=== PATIENT | female | born 1960 | race Caucasian/White ===

== ENCOUNTER 2017-06-23 07:31 | Inpatient (IN) | payer MEDICAID ==
[~2017-06-23] VITALS: Ht 152.4 cm; Wt 72.8 kg
[~2017-06-23 07:31] MED LIST: IBUPROFEN 800800 M1 PO; ROBAXIN500 MG PO
[2017-06-23 07:36] VITALS: BP 112/72
[2017-06-23 08:18] LABS: HEMATOCRIT 38.5 % (37.0-47.0); HEMOGLOBIN 13.3 gm/dL (12.0-15.0); MCH 28.3 pg (26.0-34.0); MCHC 34.7 g/dL (28.0-37.0); MCV 81.8 fL (80.0-100.0); MPV 8.9 fl. (7.2-11.1); NUCLEATED RBCS 0 /100WBC; PLATELET COUNT* 266 thou/uL (150-400); RDW-CV 13.4 % (10.5-14.5); WBC 9.2 thou/uL (4.0-11.0)
[2017-06-23 08:21] LABS: BE -3.4 mmol/L (-2 to +3); HCO3 19.2 mmol/L (22.0-26.0); pH 7.453 (7.340-7.450)
[2017-06-23 08:25] LABS: ANION GAP 14 mmol/L (7-16); BUN 7 mg/dL (7-18); CALCIUM 9.1 mg/dL (8.5-10.1); CHLORIDE 102 mmol/L (98-107); CO2 22 mmol/L (21-32); CREATININE 0.7 mg/dL (0.6-1.3); GLUCOSE 98 mg/dL (70-99); POTASSIUM 3.3 mmol/L (3.5-5.1); SODIUM 138 mmol/L (136-145)
[2017-06-23 08:25] LABS: PO2 55.2 mmHg (75.0-100.0)
[2017-06-23 08:33] LABS: ALBUMIN 3.5 g/dL (3.4-5.0); ALKALINE PHOSPHATASE 113 U/L (46-116); SGOT 36 U/L (15-37); SGPT 60 U/L (30-65); TOTAL BILIRUBIN 0.9 mg/dL (<0.1-1.0); TOTAL PROTEIN 6.6 g/dL (6.4-8.2); TROPONIN-I LEVEL <0.06 ng/mL (<0.06)
[2017-06-23 08:46] LABS: ABSOLUTE BASOPHILS 0.1 thou/uL (0.0-0.2); ABSOLUTE EOSINOPHILS 0.4 thou/uL (0.0-0.7); ABSOLUTE LYMPHOCYTES 1.4 thou/uL (0.8-5.3); ABSOLUTE MONOCYTES 0.7 thou/uL (0.0-1.2); ABSOLUTE NEUTROPHILS 6.6 thou/uL (1.6-8.1); PLATELET ESTIMATE ADEQUATE
[2017-06-23 10:42] VITALS: BP 102/75
[2017-06-23 10:48] VITALS: BP 118/68
--- NOTE | 2017-06-23 11:00 | NUR ---
RECEIVED REPORT. PT TRANSFERRED TO ROOM 227 VIA CART. VSS. CARDIAC MONITOIRING PLACED. IVF BOLUS AND ANTIBIOTIC INFUSING AT THIS TIME. PT ON 5L PER NC WITH O2 SAT AT 93% PT REPORTS SOA WITH EXERTION. PT DNENIES ANY COMPLAINTS OF PAIN OR DISCOFMORT. ADMISSION HISTORY AND ASSESSMENT COMPELTED CHARTED. PT ORIETNED TO ROOM AND CALL LIGHT. PT INFORMED OF PLAN OF CARE. PT COMMUNICATES UNDERSTANDING. CALL LIGHT IS WITHIN REACH. WILL CONTINUE TO MOTNIOR FOR DURAITON OF SHIFT.
[2017-06-23 15:40] VITALS: BP 97/64
--- NOTE | 2017-06-23 18:06 | NUR ---
VSS. CARDIAC MONTIORING IN PLACE WITH NO CHANGES THIS SHIFT. PT PROGRESSING TOWARDS GOALS. PT REMAINS ON 5L PER NC. PT REPORTS FEELING BETTER. IVF INFUSING PER ORDERS. PT HAS HAD NO COMPLAINTS OF PAIN OR DISCOMFORT THIS SHIFT. PT IS UP WITH STAND BY ASSISTANCE TO BATHROOM. PT DOES BECOME SOA WITH ACTIVITY. PT SCHEDULED TO HAVE THROACENTESIS IN AM. PT INFORMED OF PLAN. CALL LIGHT IS WITHIN REACH. WILL CONTINUE TO MONITOR FOR DURATION OF SHIFT.
[2017-06-24] VITALS (8 sets, daily range): BP systolic 100–129; BP diastolic 53–76
[2017-06-24 04:17] LABS: APTT 24.7 Seconds (25.0-31.3); INR 1.3; PROTIME 12.7 Seconds (9.20-11.50)
[2017-06-24 04:18] LABS: CALCIUM 8.7 mg/dL (8.5-10.1); CREATININE 0.8 mg/dL (0.6-1.3)
[2017-06-24 04:20] LABS: POTASSIUM 4.5 mmol/L (3.5-5.1)
[2017-06-24 04:58] LABS: ABSOLUTE LYMPHOCYTES 0.6 thou/uL (0.8-5.3); ABSOLUTE MONOCYTES 0.2 thou/uL (0.0-1.2); ABSOLUTE NEUTROPHILS 6.9 thou/uL (1.6-8.1); BASOPHILS 0.1 %; HEMATOCRIT 36.6 % (37.0-47.0); HEMOGLOBIN 12.4 gm/dL (12.0-15.0); LYMPHOCYTES 7.9 %; MCH 28.1 pg (26.0-34.0); MCHC 33.8 g/dL (28.0-37.0); MCV 83.1 fL (80.0-100.0); MONOCYTES 2.5 %; MPV 8.8 fl. (7.2-11.1); NUCLEATED RBCS 0 /100WBC; PLATELET COUNT* 242 thou/uL (150-400); POLYS 89.5 %; RBC 4.41 mil/uL (4.20-5.00); RDW-CV 13.6 % (10.5-14.5); WBC 7.7 thou/uL (4.0-11.0)
--- NOTE | 2017-06-24 05:27 | NUR ---
PATIENT SLEPT PART OF THE NIGHT. IV FLUIDS CONTINUE TO INFUSE ORDERED. PATIENT REMAIN ON OXYGEN AT 5 LITERS PER NASAL CANNULA. PATIENT HAD NO COMPLAINTS OF PAIN. WILL CONTINUE TO MONITOR.
[2017-06-24 06:50] LABS: BE -4.3 mmol/L (-2 to +3); PCO2 34.3 mmHg (35.0-45.0); PO2 62.4 mmHg (75.0-100.0); pH 7.383 (7.340-7.450)
--- NOTE | 2017-06-24 08:00 | NUR ---
AM ASSESSMENT COMPLETE, DEFER TO COMPUTER CHARTING. STRAP BUCKLER TRACKING SR. 02 ON 4L PER NC, SOA NOTED WITH ACTIVITY. NPO TODAY FOR PROCEDURE TODAY. IV INFUSING, CALL LIGHT WITHIN REACH. DENIES PAIN, DIZZINESS AT THIS TIME.
[2017-06-24 13:05] LABS: BF RBC 2236 /mm3; TOTAL CELL COUNT 1536 /mm3
[2017-06-24 13:08] LABS: CLARITY SLIGHTLY HAZY; COLOR AMBER; TOTAL VOLUME 550 ml
--- NOTE | 2017-06-24 13:30 | NUR ---
MET WITH PT TO DISCUSS HOME SITUATION/DC PLANNING. PT [place]IVES [place] WITH DTR AND GRANDDTR. 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 PT USES NO EQUIPMENT AND HASN'T HAD HH. SHE IS UNINSURED. GAVE PT COMMUNITY RESOURCES INFO, DISCOUNT DRUG CARD AND INFO RE; DISABILITY. PT HOPES SHE DOESM'T NEED ANY DME AT DC AND PLANS TO RETURN HOME AT DC. DID ENCOURAGE F/U AFTER DC AND DISCUSSED [facility]
--- NOTE | 2017-06-24 14:00 | NUR ---
ORDERS RECEIVED BY DR RIOS TO DC IV IN FOOT, DC PER ORDERS. DOCTOR AWARE PATIENT NOT HAVING IV ACCESS.
[2017-06-24 14:37] LABS: NT-PRO BRAIN NAT PEPTIDE 435 pg/mL (<300); TROPONIN-I LEVEL <0.06 ng/mL (<0.06)
[2017-06-24 14:43] LABS: BF EOSINOPHILS 1 %; BF LYMPHOCYTES 90 %; BF POLYS 9 %; BF TISSUE 17 /100 WBC
[2017-06-24 15:01] LABS: SOURCE THORACENTESIS
--- NOTE | 2017-06-24 15:52 | 2DMMODE ---
[place] [address] 2 D/M-MODE ECHOCARDIOGRAM Name: GERMAN LAMBERT Room: [facility] ADM IN [place]#: [id number] Admission: 06/23/17 Attend Phys: Bobo Armando Discharge: Date of : 60 Date of Service: 06/24/17 1552 Report #: [id number] THIS REPORT FOR: //name// APPROVED REPORT Study performed: 06/24/2017 14:22:31 EXAM: Comprehensive 2D, Doppler, and color-flow Echocardiogram Patient Location: In-Patient Room #: [facility] Status: routine BSA: 1.70 HR: 105 bpm BP: 107/73 mmHg Rhythm: NSR Other Information Study Quality: Good Indications Dyspnea 2D Dimensions LVEF(%): 71.96 (>50%) IVSd: 10.27 (7-11mm) LVOT Diam: 21.05 (18-24mm) LVDd: 36.36 mm PWd: 8.52 (7-11mm) Ascending Ao: 26.31 (22-36mm) LVDs: 21.69 (25-40mm) Aortic Root: 29.92 mm Boone's LVEF: 71.96 % Aortic Valve AoV Peak See.: 1.02 m/s AO Peak Gr.: 4.18 mmHg LVOT Max P.18 mmHg AO Mean Gr.: 2.13 mmHg LVOT Mean P.33 mmHg LVOT Max V: 0.89 m/s AO V2 VTI: 13.16 cm LVOT Mean V: 0.52 m/s BUBBA (VTI): 3.16 cm2 LVOT V1 VTI: 11.94 cm Mitral Valve MV Decel. Time: 93.97 ms MV PHT: 27.25 ms MVA (PHT): 8.07 cm2 [place] [address] 2 D/M-MODE ECHOCARDIOGRAM Name: GERMAN LAMBERT Room: [place] [address] ADM IN .R.#: [id number] Admission: 06/23/17 Attend Phys: Bobo Armando Discharge: Date of : 60 Date of Service: 06/24/17 1552 Report #: [id number] TR Peak Gr.: 34.56 mmHg RVSP: 39.00 mmHg Left Ventricle The left ventricle is normal size. There is normal LV segmental wall motion. There is normal left ventricular wall thickness. Left ventricular systolic function is normal. LVEF is 60-65%. Transmitral Doppler flow pattern suggests impaired LV relaxation. Right Ventricle The right ventricle is normal size. The right ventricular systolic function is normal. Atria The left atrium size is normal. The right atrium size is normal. Aortic Valve The aortic valve is normal in structure. No aortic regurgitation is present. There is no aortic valvular stenosis. Mitral Valve The mitral valve is normal in structure. There is no mitral valve regurgitation noted. No evidence of mitral valve stenosis. Tricuspid Valve The tricuspid valve is normal in structure. Trace tricuspid regurgitation. The RVSP is 35-40 mmHg. Pulmonic Valve The pulmonary valve is normal in structure. There is no pulmonic valvular regurgitation. Great Vessels The aortic root is normal in size. IVC is normal in size and collapses with >50% inspiration Pericardium There is a very large circumferential pericardial effusion. There are no changes to suggest tamponade. <Conclusion> The left ventricle is normal size. There is normal left ventricular wall thickness. Left ventricular systolic function is normal. LVEF is 60-65%. Transmitral Doppler [place] [address] 2 D/M-MODE ECHOCARDIOGRAM Name: GERMAN LAMBERT Room: [address] IN [facility]#: [id number] Admission: 06/23/17 Attend Phys: Bobo Armando Discharge: Date of : 60 Date of Service: 06/24/17 1552 Report #: [id number] relaxation. Trace tricuspid regurgitation. The RVSP is 35-40 mmHg. There is a very large circumferential pericardial effusion. There are no changes to suggest tamponade. <ELECTRONICALLY SIGNED> By: Ian Pollack MD, FACC 06/24/17 1552 [id number] Ian Pollack MD, FACC /INF
--- NOTE | 2017-06-24 16:33 | EKG ---
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: ZHEN : 1960 Requested By: Etta Peraza Order Number: [id number] Arianna MD: Akash Ragland Measurements Intervals [place] Rate: 102 P: 87 IA: 162 QRS: 89 QRSD: 106 T: 34 QT: 360 QTc: 469 Interpretive Statements Sinus tachycardia Low voltage with right axis deviation No previous ECG available for comparison Electronically Signed On 06-24-2017 16:33:18 NEON SIGN MECHANIC by Akash Ragland [email or web address] <ELECTRONICALLY SIGNED> By: Akash Ragland MD, [facility] 06/24/17 1633 0745 0745 Akash Ragland MD, FACC /EPI
--- NOTE | 2017-06-24 18:04 | NUR ---
MONITORING AND EVALUATION ADVISOR TRACKING ST - DENIES CHEST PAIN, DIZZINESS OR ANY DISCOMFORT AT THIS TIME. EDUCATED ON BEDREST DUE TO RECEIVING SEDATION. DRESSING CDI TO CHEST AND BANDAID DRESSING CDI TO LEFT SIDE OF BACK FROM PROCEDURES TODAY. PINK IN COLOR, REPORTING BREATHING IMPROVING, FEELING BETTER. HOB ELEVATED, GIVEN DINNER TRAY - TOLERATING MEAL WITH NO COMPLAINTS OF NASUEA. CALL LIGHT WITHIN REACH. WILL CONTINUE WITH PLAN OF CARE.
[2017-06-24 18:52] LABS: BF RBC 736545 /mm3; TOTAL CELL COUNT 4321 /mm3
[2017-06-24 19:01] LABS: CLARITY CLOUDY; COLOR BLOODY; TOTAL VOLUME 20 ml
[2017-06-24 19:32] LABS: BF EOSINOPHILS 9 %; BF LYMPHOCYTES 55 %; BF POLYS 36 %; SOURCE PERICARDIAL
[2017-06-25 00:52] VITALS: BP 102/64
[2017-06-25 04:11] VITALS: BP 108/73
[2017-06-25 04:38] LABS: BE -0.4 mmol/L (-2 to +3); HCO3 23.4 mmol/L (22.0-26.0); PCO2 35.7 mmHg (35.0-45.0); PO2 70.7 mmHg (75.0-100.0); pH 7.434 (7.340-7.450)
[2017-06-25 05:09] LABS: HEMATOCRIT 39.1 % (37.0-47.0); HEMOGLOBIN 12.9 gm/dL (12.0-15.0); MCH 27.8 pg (26.0-34.0); MCHC 32.9 g/dL (28.0-37.0); MCV 84.6 fL (80.0-100.0); MPV 9.2 fl. (7.2-11.1); NUCLEATED RBCS 0 /100WBC; PLATELET COUNT* 258 thou/uL (150-400); RBC 4.63 mil/uL (4.20-5.00); RDW-CV 14.1 % (10.5-14.5); WBC 18.8 thou/uL (4.0-11.0)
[2017-06-25 05:41] LABS: ANION GAP 11 mmol/L (7-16); BUN 11 mg/dL (7-18); CALCIUM 9.2 mg/dL (8.5-10.1); CHLORIDE 105 mmol/L (98-107); CHOLESTEROL 140 mg/dL (<200); CO2 26 mmol/L (21-32); CREATININE 0.8 mg/dL (0.6-1.3); GLUCOSE 122 mg/dL (70-99); HDL CHOLESTEROL 31 mg/dL (>40); LDL CHOLESTEROL 92 mg/dL (<100); SODIUM 142 mmol/L (136-145); TC:HDL 4.5 Ratio (Not establshd); TRIGLYCERIDE 87 mg/dL (<150); VLDL 17 mg/dL (<40)
[2017-06-25 05:43] LABS: SERUM ASSESSMENT Clear
[2017-06-25 07:45] VITALS: BP 134/59
--- NOTE | 2017-06-25 07:52 | NUR ---
Pt up ad derrell in room overnight. Reported on multiple occasions that she had chest pain and pressure to L side of chest that increased with movement and resolved with rest. Then after she went to bed (some time after midnight), pt experienced chest pressure and pain again. States she usually lies on her left side to sleep, but was unable to lie on either side due to increasing pain when on either side. Tylenol given at 0200, and pt was asleep when checked on 45 minutes later. At 0520 pt reported chest pain/pressure was returning and asked for more Tylenol. Informed her that she could have another dose of Tylenol at 0600, which it was. Pt NPO since midnight pending testing except for some water with meds. Dyspneic with speaking, and speaking in whispers. SR-ST per monitor. VSS. Will continue to monitor.
[2017-06-25 07:56] LABS: ABSOLUTE LYMPHOCYTES 1.5 thou/uL (0.8-5.3); ABSOLUTE MONOCYTES 0.8 thou/uL (0.0-1.2); ABSOLUTE NEUTROPHILS 16.5 thou/uL (1.6-8.1); PLATELET ESTIMATE ADEQUATE; POLYCHROMASIA 1+
[2017-06-25 11:12] LABS: BODY FLUID AMYLASE 19 U/L (()); BODY FLUID LDH 92 IU/L (()); BODY FLUID PROTEIN 1.5 g/dL (())
[2017-06-25 12:15] VITALS: BP 96/54
--- NOTE | 2017-06-25 15:16 | NUR ---
ORDER RECEIVED TO TRANSFER PT TO [facility] FOR CT SURGERY EVAL FOR PERICARDIAL WINDOW. CALL PLACED TO TRANSFER NURSE/ JEANETTE. GAVE INFO. DR BALLESTEROS SPOKE WITH THEIR HOSPITALIST, STATES PT WAS ACCEPTED. FACE SHEET FAXED TO [facility], AWAIT RETURN CALL RE: TRANSFER. DISCUSSED WITH PT, SHE IS IN AGREEMENT
--- NOTE | 2017-06-25 15:41 | 2DMMODE ---
[place] [address] 2 D/M-MODE ECHOCARDIOGRAM Name: GERMAN LAMBERT Room: [facility] ADM IN [place]#: [id number] Admission: 06/23/17 Attend Phys: Bobo Armando Discharge: Date of : 60 Date of Service: 06/25/17 1541 Report #: [id number] THIS REPORT FOR: //name// APPROVED REPORT Study performed: 06/25/2017 10:06:16 EXAM: Limited 2D, Doppler, and color-flow Echocardiogram Patient Location: In-Patient Room #: 227 Status: routine BSA: 1.70 HR: 96 bpm BP: 134/59 mmHg Rhythm: NSR Other Information Study Quality: Good Indications Dyspnea Pericardial Effusion Tricuspid Valve TR Peak Gr.: 72.64 mmHg RVSP: 77.00 mmHg Left Ventricle The left ventricle is normal size. Mild concentric left ventricular hypertrophy. The left ventricular systolic function is normal. The left ventricular ejection fraction is within the normal range. LVEF is 60-65%. Right Ventricle Right ventricle is moderately dilated. Right ventricle is hypokinetic. Atria The left atrium size is normal. Right atrium is moderately dilated. Aortic Valve The aortic valve is normal in structure. No aortic regurgitation is present. There is no aortic valvular stenosis. Mitral Valve The mitral valve is normal in structure. There [place] [address] 2 D/M-MODE ECHOCARDIOGRAM Name: GERMAN LAMBERT Room: [place] [address] ADM IN M.[place].#: [id number] Admission: 06/23/17 Attend Phys: Bobo Armando Discharge: Date of : 60 Date of Service: 06/25/17 154 Report #: [id number] regurgitation noted. Tricuspid Valve The tricuspid valve is normal in structure. Mild tricuspid regurgitation. The RVSP is ___70___ mmHg. Pulmonic Valve The pulmonary valve is normal in structure. Great Vessels The aortic root is normal in size. IVC is normal in size and collapses >50% with inspiration. Pericardium Moderate circumferential pericardial effusion. <Conclusion> Mild concentric left ventricular hypertrophy. LVEF is 60-65%. Right ventricle is moderately dilated. Mild tricuspid regurgitation. The RVSP is ___70___ mmHg. Moderate circumferential pericardial effusion. <ELECTRONICALLY SIGNED> By: Akash Ragland MD, [facility] 06/25/17 154 [id number] 154 Akash Ragland MD, FACC /INF
--- NOTE | 2017-06-25 16:08 | NUR ---
ASSESSMENT COMPLETED REFER TO COMPUTER CHARTING. SECURITY BUSINESS ANALYST TRACKING SR TO ST ON THE MONITOR. PATIENT RESTING IN BED AND UP TO BED SIDE CAIR. IV SALINE LOCKED. PATIENT ON 2.5 LITERS VIA NASAL CANNULA. PATIENT REPORTING NO INCREASED SHORTNESS OF BREATH OR NAUSEA. BED IN LOW AND LOCKED POSITION. CALL LIGHT WITHIN REACH. BED IN LOW AND LOCKED POSITION. PATIENT TO BE TRANSFERED TO [facility]. WILL CONTINUE TO MONITOR AT THIS TIME.
[2017-06-25 16:18] VITALS: BP 103/64
[2017-06-26 10:47] LABS: SOURCE THORACENTESIS
[2017-06-26 10:48] LABS: SOURCE PERICARDIAL
--- NOTE | 2017-06-26 12:44 | CNG ---
[address] [address] CYTO-NONGYN REPORT PROCEDURE Name: EDYTA BOYKIN Room: [address] IN .R.#: [id number] Admission: 06/23/17 Date of : 60 Discharge: 06/25/17 Report #: [id number] Path Case #: [id number] CYTOPATHOLOGY REPORT COLLECTION DATE: 06/24/2017 RECEIVED DATE: 06/25/2017 SUBMITTING PHYS: Dr. Mikhail Villafana OTHER PHYS: Dr. Bobo Armando CLINICAL HISTORY: Hypoxemia likely with COPD and pulmonary infiltrate, short of air SPECIMEN(S) RECEIVED: A.Pleural fluid, Left * * * * * * * * * * * * FINAL DIAGNOSIS: A. Pleural fluid, Left: - No malignant cells identified. Mesothelial cells and abundant, predominantly chronic inflammatory cells present. (MARY:pit; 06/26/2017) PATHOLOGIST: Rod Huggins M.D. REPORT ELECTRONICALLY SIGNED BY: Rod Huggins M.D. DATE/TIME: 06/26/2017 12:44 * * * * * * * * * * * * GROSS PATHOLOGY: A. Pleural fluid, Left: The specimen is submitted unfixed, labeled "Edyta Boykin". Received by the Cytology Department is 25 mL of cloudy yellow fluid. One ThinPrep slide and a formalin fixed cell block were prepared. (06.25.2017) RETAIL GROCER(S): [place], [place](ASCP) INITIAL CPT CODE(S): A; 76741, 76252 Professional services performed by [facility] at [facility], [address], [place] [address]. Technical services performed by [facility] at [address] [place] [address], [address], [place] [address]. [facility], [address] [place] [address] PHONE: [phone] DIRECTOR: Willard Gasca M.D. * * * END OF REPORT * * *
[2017-06-26 15:12] LABS: BODY FLUID LDH 518 IU/L (()); BODY FLUID PROTEIN 4.8 g/dL (())
[2017-06-26 18:08] LABS: BODY FLUID PH 7.7 (Not Estab.)
[2017-06-28] MEDS ORDERED: MUCINEX600 MG PO (11:50)
[2017-06-28] MEDS ORDERED: MELATONIN5 M1 PO (11:50)
[2017-06-28] MEDS ORDERED: SOLU-MEDRO40 MG/1 M2 IV PUSH (11:50)
[2017-06-28] MEDS ORDERED: DUONEB 2.5-0.5 M3 ML INH (11:50)
[2017-06-28] MEDS ORDERED: LEVAQUIN 750 M750 MG PO (11:50)
[2017-06-28] MEDS ORDERED: MIRALAX17 GM PO (11:50)
--- NOTE | 2017-06-30 08:34 | PROC ---
[facility] [address] [place] [address] PROCEDURE REPORT Name: GERMAN LAMBERT Room: [address] IN M.R.#: [id number] Admission: 06/23/17 Attend Phys: Antwan Moura Discharge: 06/25/17 Date of : 60 Report #: [id number] THIS REPORT FOR: //name// CC: SOLITARIO physician/PCP Bobo Armando CARDIAC PROCEDURE SERVICE INDICATION: Large pericardial effusion. PROCEDURE: Pericardiocentesis. DESCRIPTION OF PROCEDURE: After informed consent was obtained, the patient was brought to the cardiac catheterization lab. The area of the chest was prepped and draped in the sterile fashion. Local anesthesia was given with subcutaneous lidocaine. The intercostal space left of the sternum was anesthetized. Using a micropuncture kit, ultimately, a safety J guidewire was advanced in the pericardium. Fluoroscopy was utilized to verify position. Ultimately, a 5-Greek pigtail catheter was advanced to the pericardium. A 1170 mL of bloody pericardial fluid was removed. The pigtail catheter was sutured in place and left in a capped state. The patient tolerated the procedure well and without complications. IMPRESSION: 1. Large pericardial effusion. 2. Status post pericardiocentesis with removal of 1170 mL of bloody fluid. <ELECTRONICALLY SIGNED> By: Ian Pollack MD, [facility] 06/30/17 0834 1726 0027[facility] Pollack MD, KAREN /nt
--- NOTE | 2017-06-30 08:34 | CON ---
[address] [address] CONSULTATION Name: GERMAN LAMBERT Room: [address] IN .R.#: [id number] Admission: 06/23/17 Attend Phys: Antwan Moura Discharge: 06/25/17 Date of : 60 Report #: [id number] THIS REPORT FOR: //name// CC: SOLITARIO physician/PCP Bobo Armando DATE OF SERVICE: 06/24/2017 INDICATION: Pericardial effusion. HISTORY OF PRESENT ILLNESS: The patient is a 57-year-old white female who had a flu-like illness in May. She states she has been short of breath since that time. She presented to the hospital when her shortness of breath became significant and she had rather significant dyspnea on exertion. Presently, she is without cough or fever. Chest x-ray suggested large left-sided pleural effusion. By thoracentesis, they were able to obtain 550 mL of fluid. During that procedure, it was noted that she had a large pericardial effusion. The patient is undergoing echocardiogram at present. Indeed, there does appear to be a large circumferential pericardial effusion without obvious findings to suggest tamponade. The patient denies any milan chest pain at present. She denies palpitations. She has moderate orthopnea and denies paroxysmal nocturnal dyspnea. She is without other cardiac complaint. PAST MEDICAL HISTORY: Fairly sparse. She reports a history of TIA remotely. 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 PAST SURGICAL HISTORY: She has had a hysterectomy remotely. She had shoulder surgery remotely. FAMILY HISTORY: Positive for premature atherosclerotic coronary artery disease. The patient's father suddenly at the age of 54 from a heart attack. The patient has a sister who at 42 from heart disease and a grandmother who at 56 from heart disease. SOCIAL HISTORY: The patient is . 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 She does not drink. She does not smoke. ALLERGIES: CODEINE AND SULFA. CURRENT MEDICATIONS: None. REVIEW OF SYSTEMS: A 14-point review of systems is positive for some convulsions/seizures at the time of her aneurysm diagnosis many years ago, but none recently. Cough productive of clear yellow sputum. She has a history of pneumonia in May. She reports mild chest discomfort described as a [facility] [address] [place] [address] CONSULTATION Name: GERMAN LAMBERT Room: [address] IN [facility].#: [id number] Admission: 06/23/17 Attend Phys: Antwan Moura Discharge: 06/25/17 Date of : 60 Report #: [id number] pressure. She has dyspnea and orthopnea. She reports medical allergies as outlined above. She has a history of some anxiety, but no depression. She wears glasses, has occasional blurry vision. She wears dentures. Otherwise, 14-point review of systems was unremarkable. PHYSICAL EXAMINATION: VITAL SIGNS: Stable. Blood pressure 107/73, pulse 91 and regular. GENERAL: This is a pleasant lady who is in no distress. Mood and affect appropriate. HEENT: Extraocular muscles intact. Mucous membranes are moist. NECK: Shows no jugular venous distention. There are no carotid bruits. CHEST: Reveals diminished breath sounds without obvious rales. There are some slight expiratory wheezes. CARDIOVASCULAR: Reveals a regular rhythm. I do not appreciate gallop, murmur or rub. ABDOMEN: Reveals normal bowel sounds. The abdomen is soft and nontender. EXTREMITIES: Show no edema. LABORATORY DATA: A 12-lead EKG shows sinus rhythm with low voltage. There is a suggestion of electrical alternans. I do not appreciate significant ST segment abnormalities. Labs were reviewed without remarkable findings. Chest x-ray shows hazy infiltrate versus fluid over the entire left lung field. Initial echo findings thus far large circumferential pericardial effusion without evidence of tamponade. Normal LV systolic function. Chamber dimensions appear normal. IMPRESSION AND RECOMMENDATIONS: The patient has significant sized pericardial effusion. She did have some pleural fluid tapped earlier today. I will await the results of those cell counts and findings. At this point in time, there is no indication for emergent pericardiocentesis. We will follow clinically. A repeat troponin has been ordered. Her initial troponin was unremarkable. <ELECTRONICALLY SIGNED> By: Ian Pollack MD, FACC 06/30/17 0834 1434 [id number] Pollack MD, FACC /nt
--- NOTE | 2017-06-30 14:29 | CNG ---
[address] [address] CYTO-NONGYN REPORT PROCEDURE Name: EDYTA BOYKIN Room: [address] IN M.R.#: [id number] Admission: 06/23/17 Date of : 60 Discharge: 06/25/17 Report #: [id number] Path Case #: [id number] CYTOPATHOLOGY REPORT COLLECTION DATE: 06/26/2017 RECEIVED DATE: 06/26/2017 SUBMITTING PHYS: Dr. Ian Pollack OTHER PHYS: Dr. 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 (SEE COMMENT) COMMENT: Sections show scattered generally single malignant cells noted to have pleomorphic and hyperchromatic nuclei, occasionally noted to be multinucleated, with abundant lightly eosinophilic cytoplasm and conspicuous nucleoli with a background of heavy blood and acute inflammation. A panel of properly controlled immunohistochemical stains performed on the cell block, shows the malignant cells to have the following characteristics supporting the diagnosis: CK7: positive CK20: negative Estrogen receptor: negative TTF-1: positive CEAp: equivocal S-100: negative Synaptophysin: negative WT-1: equivocal cytoplasmic positive, nuclear negative Diaz-EP4: positive Preliminary findings discussed with Dr. Pollack at approximately 11:15 a.m. on 06/27/2017. Reviewed with Dr. Rodney, who agrees with the diagnosis. (MARY:mgr; 06/30/2017) PATHOLOGIST: Rod Huggins M.D. REPORT ELECTRONICALLY SIGNED BY: Rod Huggins M.D. DATE/TIME: 06/30/2017 14:28 * * * * * * * * * * * * [address] [address] CYTO-NONGYN REPORT PROCEDURE Name: EDYTA BOYKIN Room: [address]#: [id number] Admission: 06/23/17 Date of : 60 Discharge: 06/25/17 Report #: [id number] Path Case #: [id number] GROSS PATHOLOGY: Pericardial fluid: The specimen is submitted unfixed, labeled "Edyta Boykin". Received by the Cytology Department is 95 mL of cloudy red fluid. One ThinPrep slide and a formalin fixed cell block were prepared. (mm 06.26.2017) CANCER CENTER DIRECTOR(S): JULIANE Page([facility]) INITIAL CPT CODE(S): A; 85122, 13404, 11680, 15526, 48749, 50851, 46069, 91843, 02439, 23052, 27015 Professional services performed by [facility] at [address] [address] Technical services performed by [facility] at [address] [place] [address]., [address], [place] [address]. [facility] [address] [place] [address], [address] [place] [address] PHONE: [phone] DIRECTOR: Willard Gasca M.D. * * * END OF REPORT * * *
== END 2017-06-25 17:16 | disposition short-term general hospital (02) | DRG 177 ==
LOC: M.ERS 07:31 → M.2W 09:50 → M.TBA-ER 09:50 → M.2W 10:49
PROVIDERS: Internal Medicine Cardiovascular Disease; Personal Emergency Response Attendant; ADMIT Internal Medicine
PROC: 0W9D3ZZ Drainage of Pericardial Cavity, Percutaneous Approach (ICD-10-PCS; principal; 2017-06-24)
DX: J15.6 Pneumonia due to other Gram-negative bacteria (principal); J96.01 Acute respiratory failure with hypoxia; I31.3 Pericardial effusion (noninflammatory); J90 Pleural effusion, not elsewhere classified; J44.0 Chronic obstructive pulmonary disease with (acute) lower respiratory infection; E87.6 Hypokalemia; Z90.710 Acquired absence of both cervix and uterus; Z79.899 Other long term (current) drug therapy; Z88.6 Allergy status to analgesic agent; Z88.2 Allergy status to sulfonamides; Z87.891 Personal history of nicotine dependence; Z86.73 Personal history of transient ischemic attack (TIA), and cerebral infarction without residual deficits; Z28.21 Immunization not carried out because of patient refusal